=== PATIENT | female | born 1990 | race African-American/Black ===

== ENCOUNTER 2017-06-07 18:11 | Emergency (ER) | payer BC ==
[2017-06-07] MEDS: AZITHROMYCIN 250 MG TABLET. PO (20:00)
[2017-06-07] MEDS: cefTRIAXone IM 250 MG VIAL IM (20:00)
[2017-06-07] MEDS: metroNIDAZOLE 500 MG TABLET PO (20:00)
[2017-06-07 20:15] LABS: URINE HCG POC HCG NEGATIVE (Negative)
[2017-06-07 20:19] LABS: BILIRUBIN,URINE NEGATIVE (NEG); CLARITY,URINE CLEAR; COLOR,URINE YELLOW; GLUCOSE,URINE NEGATIVE (NEG); NITRITE,URINE NEGATIVE (NEG); PH,URINE 6.5; PROTEIN,URINE NEGATIVE (NEG-TRACE)
[2017-06-07 20:31] LABS: BACTERIA,URINE FEW /HPF (0-FEW); RBC,URINE RARE /HPF (0-2); SQUAMOUS EPITHELIAL CELL,UR MOD /LPF
[2017-06-09 14:34] LABS: CHLAMYDIA PROBE Negative (Negative); GC PROBE Negative (Negative)
== END 2017-06-07 20:48 | disposition home or self-care (01) ==
LOC: ER 18:11
DX: A59.01 Trichomonal vulvovaginitis (principal); B96.89 Other specified bacterial agents as the cause of diseases classified elsewhere; Z91.040 Latex allergy status
CPT/HCPCS: 81001; 81025; 87491; 87591; 96372; 99284; J0696; Q0111; Q0144